=== PATIENT | female | born 1975 | race Caucasian/White ===

== ENCOUNTER → 2024-11-05 15:00 | Outpatient (BNVA) | payer OTHER, MEDICAID, SELFPAY | PROVIDERS: PCP Family Medicine; Visit Provider Registered Nurse | DX: E11.9 Type 2 diabetes mellitus without complications (principal) | CPT/HCPCS: 81000 ==

== ENCOUNTER → 2024-11-06 09:09 | Outpatient (BNVA) | payer OTHER, MEDICAID, SELFPAY | PROVIDERS: PCP Registered Nurse; Visit Provider Registered Nurse | DX: I10 Essential (primary) hypertension (principal) | CPT/HCPCS: 80053; 80061; 83036; 84443; 85025 ==

== ENCOUNTER → 2024-11-08 08:26 | Outpatient (BNVA) | payer OTHER, MEDICAID, SELFPAY | PROVIDERS: PCP Registered Nurse; Visit Provider Orthopaedic Surgery | DX: M75.42 Impingement syndrome of left shoulder (principal); M75.102 Unspecified rotator cuff tear or rupture of left shoulder, not specified as traumatic; M12.812 Other specific arthropathies, not elsewhere classified, left shoulder | CPT/HCPCS: 73030 ==

== ENCOUNTER → 2025-01-14 08:15 | Outpatient (BNVA) | payer BC, MEDICAID, SELFPAY | PROVIDERS: PCP Registered Nurse; Visit Provider Registered Nurse | DX: R50.9 Fever, unspecified (principal) | CPT/HCPCS: 87400; 87426 ==

== ENCOUNTER 2025-01-16 06:52 | Day surgery (SDC) | payer BC, MEDICAID, SELFPAY ==
[2025-01-16] VITALS (13 sets, daily range): BP systolic 127–157; BP diastolic 63–99; PULSE 82–98; RESP 12–28; TEMP 36.3–36.4; O2SAT 92–98; BMI 32.1
[2025-01-16] MEDS: sodium chloride 0.9% 1,000 ML 30 ML IV (07:25)
[2025-01-16 07:27] LABS: Glucose Point of Care 92 mg/dL (70-110)
[2025-01-16] MEDS: scopolamine 1 mg PATCH 1 PATCH TRANSDERMA (07:32)
--- NOTE | 2025-01-16 08:20 | W.PM.OPSUD ---
Surgery/Procedure H&P Update DATE OF PROCEDURE: January 16, 2025 DATE H&P PERFORMED: 11/08/24 H&P UPDATE INFORMATION: I have reviewed H&P completed within last 30 days, I have examined patient prior to procedure and No changes to prior documentation PREOP DIAGNOSIS: Torn rotator cuff left shoulder with acromial impingement PLANNED PROCEDURE: Operation Date: 01/16/25 08:30 Proposed Procedures p Shoulder Arthroscopy(Left) - Hamzah Cox MD s Rotator Cuff Repair(Left) - Hamzah Cox MD
--- NOTE | 2025-01-16 08:31 | ANES.PREANE2 ---
Pre-Anesthetic Assessment Height/Weight: Height 5 ft 2 in Weight 176 lb Temp Pulse Resp BP Pulse Ox O2 Del Method 97.4 F L 82 18 155/99 98 Room Air 01/16/25 07:14 01/16/25 07:14 01/16/25 07:14 01/16/25 07:32 01/16/25 07:14 01/16/25 07:20 Preop Diagnosis: Torn rotator cuff left shoulder with acromial impingement Operation Date: 01/16/25 08:30 Proposed Procedures p Shoulder Arthroscopy(Left) - Hamzah Cox MD s Rotator Cuff Repair(Left) - Hamzah Cox MD Was Beta Jorge taken within 24 hours: N/A Was Clonidine taken within 24 hours: N/A Last intake: Intake Last Liquid Date 01/15/25 Last Liquid Time 23:30 Last Solid Date 01/15/25 Last Solid Time 19:00 Social No alcohol and No tobacco Exam alert, oriented x 3, clear to auscultation bilaterally and regular rate & rhythm Airway Submandibular: within normal limits Cervical ROM: within normal limits Mallampati: Class III Dentition: full Anesthetic Plan ASA status: 3 Anesthesia: General and Regional (specify below) Other: Patient had a history of nausea after her total hysterectomy in the past. Other anesthetics without issues NPO since yesterday evening Patient has had a mild cold, denies any cough or fevers currently. Has been on Augmentin for 3 days now History of hypertension, controlled with losartan GERD, on Protonix Type 2 diabetes, Ozempic last taken 01/07/2025 Labs reviewed and acceptable for procedure Plan for general anesthesia with preop nerve block Medications/Allergies Home Medications ?Medication ?Instructions ?Recorded ?Confirmed ?Last Taken ?Type atorvastatin 10 mg tablet (Lipitor) 10 mg PO DAILY 90 days #90 tabs 11/05/24 01/15/25 01/15/25 Rx diphenhydramine HCl 25 mg capsule 25 mg PO ONCE PRN Itching 11/05/24 01/15/25 01/15/25 History (Benadryl) losartan 25 mg tablet 25 mg PO DAILY 90 days #90 tabs 11/05/24 01/15/25 01/15/25 Rx pantoprazole 40 mg tablet,delayed 40 mg PO DAILY 90 days #90 tabs 11/05/24 01/15/25 01/15/25 Rx release sitagliptin phosphate 100 mg 100 mg PO DAILY 90 days #90 tabs 11/05/24 01/15/25 01/15/25 Rx tablet (Januvia) tizanidine 4 mg capsule 4 mg PO Q8H PRN muscle spasticity 11/05/24 01/15/25 01/15/25 Rx 30 days #60 caps loratadine 10 mg capsule (Allergy 10 mg PO DAILY #90 caps 11/07/24 01/15/25 01/16/25 05:30 Rx Relief (loratadine)) paroxetine HCl 12.5 mg 12.5 mg PO DAILY #90 tabs 11/07/24 01/15/25 01/16/25 05:30 Rx tablet,extended release 24 hr (Paxil CR) tramadol 50 mg tablet 50 mg PO Q8H PRN pain 21 days #99 11/20/24 01/15/25 01/16/25 05:30 Rx tabs estradiol 0.01% (0.1 mg/gram) 1 appful vaginal DAILY 30 days 11/22/24 01/15/25 Unknown Rx vaginal cream #42.5 grams nystatin 100,000 unit/gram topical 1 applic topical BID #30 grams 11/22/24 01/15/25 Unknown Rx cream mupirocin 2 % topical ointment 1 applic topical BID 7 days #22 12/17/24 01/15/25 Unknown Rx (Centany) grams amoxicillin 875 mg-potassium 1 tab PO BID 7 days #14 tabs 01/14/25 01/15/25 01/16/25 05:30 Rx clavulanate 125 mg tablet blood-glucose sensor (FreeStyle #1 ea 01/14/25 Unknown Rx Kendy 3 Plus Sensor device) blood-glucose,civil preparedness training officer,cont #1 ea 01/14/25 Unknown Rx (FreeStyle Kendy 3 [place]) semaglutide 1 mg/dose (4 mg/3 mL) 0.5 mg SUBCUT .weekly 01/15/25 01/15/25 01/07/25 History subcutaneous pen injector (Ozempic) acyclovir 800 mg tablet 800 mg PO BID PRN Cold Sores 01/16/25 01/15/25 01/09/25 History celecoxib 200 mg capsule (Celebrex) 200 mg PO DAILY 01/16/25 01/15/2525 History duloxetine 60 mg capsule,delayed 60 mg PO DAILY 01/16/25 01/16/25 01/16/25 05:30 History release (Cymbalta) pregabalin 100 mg capsule (Lyrica) 100 mg PO TID 01/16/25 01/15/25 01/16/25 05:30 History Allergies Allergy/AdvReac Type Severity Reaction Status Date / Time hydrocodone (From Vicodin) Allergy vomiting Verified 01/14/25 07:47 latex Allergy ALGY-Rash Verified 01/15/25 11:10 Current Medications Generic Name Dose Route Start Last Admin Trade Name Freq PRN Reason Stop Dose Admin Sodium Chloride 1,000 mls @ 30 mls/hr 01/16/25 07:00 01/16/25 07:25 Sodium Chloride 0.9% IV 01/17/25 06:59 30 mls/hr .Q24H BERNY Administration PFSH Anesthesia Medical History Diabetes type 2 Fibromyalgia Arthritis History of hyperlipidemia GERD (gastroesophageal reflux disease) History of kidney stones Surgical History History of hysterectomy History of History of cholecystectomy History of tonsillectomy Family History Mother Diabetes mellitus, type 2 Lung disease Rheumatoid arthritis Hypertension Cancer, Onset Age: 44 cervical Grandmother Rheumatoid arthritis maternal Stroke paternal Father Hypertension Heart disease heart attack in his 40s Diabetes mellitus, type 2 Grandfather Lung disease Other Lung cancer Menstrual abnormality Social History Smoking and tobacco/nicotine status: never used tobacco/nicotine Alcohol intake: never Substance/Drug Use: never Adopted: No Caregiver/support person: No Lives independently: No Household members: spouse service: No Current occupational status: employed Sexually active: Yes Do you think of yourself as: Lesbian/[place]/Homosexual Current gender identity: Female
--- NOTE | 2025-01-16 08:31 | PC.NURSE ---
0815 - time out performed, site marked. using us guidance left shoulder injected with 30 ml of ropivicaine. pt oscar. well.
--- NOTE | 2025-01-16 08:33 | ANES.PROC ---
Anesthesia Procedures Procedure/Date: 01/16/25 Nerve Block ^: Nerve Block 1: Main Anesthesia: other (100 mcg fentanyl and 2 mg Versed) Time Out Performed: Yes Consent: requested by attending/covering physician and from patient Nerve block location: interscalene Anesthesia monitors applied: pulse oximetry, EKG, BP cuff and oxygen Nerve block position: supine Anesthetic Used: ropivicaine 0.5% Amount of anesthesia used (mL): 30 Ultrasound used to: recognize landmarks Nerve Stimulator Used?: Yes Interscalene/Femoral BLK: other needle (pjunk 4inch) Injection: neg aspiration of heme Patient Tolerated Procedure: well Complications: none Additional Comments: decadron 4mg
[2025-01-16] MEDS: ceFAZolin 2,000 mg SDV 2000 MG IVP (09:00)
--- NOTE | 2025-01-16 10:28 | P.OP_ITS ---
Operative Report Date of procedure: January 16, 2025 Surgeon: Hamzah Cox MD Procedure: Preoperative diagnosis: Left shoulder pain with known rotator cuff tear, acromial impingement, AC arthritis Postoperative diagnosis: Left shoulder rotator cuff tear, degenerative changes labrum, acromial impingement, AC arthrosis Procedure: Diagnostic left shoulder arthroscopy with debridement of the labrum and rotator cuff. Mini open acromioplasty with AC joint decompression and rotator cuff repair Surgeon: Hamzah Cox MD Mine Analyst: ZANE Kulkarni'andrés assistance was necessary for positioning of the patient, assistance d uring procedure, wound closure, dressing and immobilization placement, transfer the patient to the PACU Anesthesia: General With preoperative scalene block EBL: 20 cc Indications: Jessica is a 49-year-old white female presented to the orthopedic clinics with painful left shoulder. She has previously been worked up in an outside facility and had an MRI from April 2024 demonstrating a supra spinatus tear of her shoulder. Patient did not have any history of injury but gradually had increasing pain problems difficulty. Now with debilitating pain loss of motion and strength in the shoulder. Clinical exam was consistent with a rotator cuff tear. Also noted on the MRI besides the supraspinatus tear was the impingement of the acromion as well as DJD of the AC joint. Therefore at that time she was offered a diagnostic shoulder arthroscopy with possible mini open rotator cuff repair acromioplasty and AC joint decompression. All risk,, and treatment alternatives were discussed with her however she wished to proceed with surgical intervention at this time. Procedure After obtaining the consent patient had a scalene block administered in the preop holding area. Patient was then taken to the operating room and placed on the operative table in the supine position. General anesthetic administered. Once good anesthesia was achieved patient was positioned in a beachchair posit ion with appropriate padding and securing to the bed. Left upper extremity was prepped and draped usual fashion. After surgical timeout standard posterior portal was made with a #11 blade. Camera cannulas placed within the glenohumeral joint line and camera was introduced. Anterior working portal was made just inferior to the clavicle. Probing of the structures within the shoulder demonstrated some mild degenerative changes of the superior and anterior labrum. These were debrided with a mechanical shaver down to stable cartilaginous space. Also note was tear of the rotator cuff which also was debrided with mechanical shaver. At this point arthroscopy is discontinued. Knee longitudinal anterior lateral incision made by the tip of the acromion. Sharp dissection taken on down the subcutaneous tissue electrocautery used for hemostasis. Electrocautery was used to remove the deltoid from the anterior portion of the acromion. The large bulbous acromial hook was identified. Using a microsagittal saw acromioplasty was done all the way to the AC joint to remove bone. Portion of the anterior acromion and the AC joint was removed at this point. Decompressing the area. Hypertrophic bursa and scar tissue was debrided from the subacromial space. Supraspinatus tendon was found to be quite thickened around the biceps hiatus. And then more medially. There is also found a separate hole within the rotator cuff back within the infraspinatus musculotendinous junction. All these areas were freshened up with a #15 blade. Two 2.9 juggernaut bone anchors were placed both of these double armed. First 1 was placed back towards the infraspinatus defect. Sutures were used in a crossing pattern to bring the edges of this tear back together. Second anchor was placed on up in the supraspinatus footprint and then in a horizontal mattress suture fashion these were also sutured down. Portions of the suture from the anchor that was left over was then used in a [id number] pattern to close the tear further extending medially of the supraspinatus. Once this was completed evaluation the shoulder found that was decompressed and the rotator cuff was repaired. Areas washed with copious amounts of sterile irrigation. Deltoid was reapproximated together with 0 Vicryl [id number] sutures. Subcutaneous tissues reapproximated 0 Vicryl interrupted sutures and skin was closed with a running 3-0 Prolene horizontal mattress suture. Portals were also closed with 3-0 Prolene. Patient was placed in abduction pillow and sling after dressings have been placed. Patient was awakened transferred to cover room stable condition
[2025-01-16] MEDS: ondansetron 2 mg/ML SDV 2 mL 4 MG IVP (10:49)
[2025-01-16 10:52] LABS: Glucose Point of Care 109 mg/dL (70-110)
[2025-01-16] MEDS: oxyCODONE-APAP 5-325 mg Tablet 1 TAB PO (11:29)
--- NOTE | 2025-01-16 12:45 | ANE.PACU2 ---
Inpatient post-anesthesia follow up: Airway intact: Yes Vital signs: Temperature 97.3 F Pulse Rate 98 Respiratory Rate 18 Blood Pressure 127/81 Pulse Oximetry 94 Oxygen Delivery Me thod Room Air Oxygen Flow Rate 10 Fraction of Inspir ed Oxygen Hydration adequate: Yes Nausea and vomiting: No Pain level: 1 Mental status: Baseline
== END 2025-01-16 12:45 | disposition home or self-care (01) ==
PROVIDERS: PCP Registered Nurse; Visit Provider Orthopaedic Surgery
PROC: (CPT 29805; principal; 2025-01-16 08:30)
PROC: 0LQ24ZZ Repair Left Shoulder Tendon, Percutaneous Endoscopic Approach (ICD-10-PCS; CPT 29827; 2025-01-16 08:30)
DX: M75.122 Complete rotator cuff tear or rupture of left shoulder, not specified as traumatic (principal); M75.42 Impingement syndrome of left shoulder; M19.012 Primary osteoarthritis, left shoulder; I10 Essential (primary) hypertension; K21.9 Gastro-esophageal reflux disease without esophagitis; E11.9 Type 2 diabetes mellitus without complications; M79.7 Fibromyalgia; E78.5 Hyperlipidemia, unspecified
CPT/HCPCS: 23420; 36416; 82962; C1713; J0690; J1100; J2405; J2704; J3010; J3490; J7030; J9999

== ENCOUNTER → 2025-02-05 10:55 | Outpatient (BNVA) | payer BC, MEDICAID, SELFPAY | PROVIDERS: PCP Registered Nurse; Visit Provider Registered Nurse | DX: E11.9 Type 2 diabetes mellitus without complications (principal) | CPT/HCPCS: 80053; 80061; 83036; 83690 ==

== ENCOUNTER 2025-04-02 10:41 | Outpatient (CLI) | payer BC, MEDICAID, SELFPAY ==
--- NOTE | 2025-04-02 10:40 | MM_ITS ---
WS: [id number] BILATERAL 3D TOMOSYNTHESIS DIGITAL SCREENING MAMMOGRAPHY WITH CAD CLINICAL INFORMATION: SCREENING HISTORY: Screening mammogram. No current complaints. COMPARISON: 2020 TECHNIQUE: Bilateral CC and MLO views. FINDINGS: Scattered fibroglandular densities bilaterally. No suspicious focal mass, asymmetry, calcifications, or architectural distortion. No evidence of malignancy. A few incidental punctate calcifications. Stable intramammary lymph nodes. MM/MM scr tomosynthesis [id number] IMPRESSION: DENSITY: There are scattered areas of fibroglandular density. BI-RADS: 2 - Benign. FOLLOW UP: 1 Year Follow-up Recommend return to annual screening mammography.
== END 2025-04-02 10:42 | disposition home or self-care (01) ==
PROVIDERS: PCP Registered Nurse; Visit Provider Registered Nurse
DX: Z12.31 Encounter for screening mammogram for malignant neoplasm of breast (principal); R92.323 Mammographic fibroglandular density, bilateral breasts; R92.1 Mammographic calcification found on diagnostic imaging of breast
CPT/HCPCS: 77063; 77067

== ENCOUNTER 2025-06-12 11:59 | Outpatient (CLI) | payer OTHER, BC, MEDICAID, SELFPAY ==
--- NOTE | 2025-06-12 12:15 | MRR_ITS ---
PROCEDURE INFORMATION: Exam: MR Right Upper Extremity Joint Without Contrast; Shoulder Exam date and time: 06/12/2025 12:30 PM Age: 49 years old Clinical indication: Injury or trauma; Blunt trauma (contusions or hematomas); Injury date: 05/2024; Prior surgery; Surgery date: 1-6 months; Surgery type: Shoulder 01/2025; Fall May 2024 injuring both shoulder/left shoulder surgery in January 2025/limited rom in the right shoulder; Additional info: M24.811 - other specific joint derangements of right shou. . . TECHNIQUE: Imaging protocol: Magnetic resonance imaging of the right upper extremity without contrast. Exam focused on the shoulder. COMPARISON: No relevant prior studies available. FINDINGS: Bones/joints: Glenohumeral articular surfaces are intact. No evidence of fracture or aggressive osseous lesion. Trace joint effusion. Moderate AC joint osteoarthritis without evidence of fracture or subluxation. Glenoid labrum: Grossly intact. If further detail is clinically warranted, consider correlation with MR arthrography. Supraspinatus tendon: Full-thickness partial width tear of the distal anterior fibers, 8 mm AP. There is approximately 6 mm tendon retraction and associated peritendinitis/subacromial/subdeltoid bursitis. Infraspinatus tendon: Intact. Subscapularis tendon: Partial-thickness tear of the distal fibers contributing to the transverse humeral ligament. No evidence of full-thickness tear. Teres minor tendon: Intact. Tendon of biceps brachii: Intact. There is suspected sprain/partial tear of the biceps rachel including the transverse humeral and coracohumeral ligaments. Glenohumeral ligaments: Grossly intact. Soft tissues: No fluid collection or hematoma. MR/MR shoulder RT wo con* [id number] IMPRESSION: 1. Full-thickness partial width tear of the supraspinatus tendon anterior fibers. 2. Partial-thickness tear of the subscapularis tendon distal fibers with suspected involvement of the biceps rachel.
== END 2025-06-12 12:00 | disposition home or self-care (01) ==
LOC: RAD 12:01
PROVIDERS: PCP Registered Nurse; Visit Provider Registered Nurse
DX: M24.811 Other specific joint derangements of right shoulder, not elsewhere classified (principal); M75.101 Unspecified rotator cuff tear or rupture of right shoulder, not specified as traumatic; S46.811A Strain of other muscles, fascia and tendons at shoulder and upper arm level, right arm, initial encounter; X58.XXXA Exposure to other specified factors, initial encounter; M19.011 Primary osteoarthritis, right shoulder; R93.7 Abnormal findings on diagnostic imaging of other parts of musculoskeletal system; M75.51 Bursitis of right shoulder
CPT/HCPCS: 73221

== ENCOUNTER 2025-06-19 08:45 | Day surgery (SDC) | payer OTHER, BC, MEDICAID, SELFPAY ==
[2025-06-19] VITALS (10 sets, daily range): BP systolic 125–156; BP diastolic 76–117; PULSE 90–100; RESP 16–18; TEMP 36.2–37; O2SAT 94–100; BMI 32.7
--- NOTE | 2025-06-19 09:29 | ANES.PREANE2 ---
Pre-Anesthetic Assessment Height/Weight: Height 5 ft 2 in Operation Date: 06/19/25 11:05 Proposed Procedures p RIGHT Shoulder Arthroscopy(Right) - Hamzah Cox MD s Rotator Cuff Repair - Open(Right) - Hamzah Cox MD Anesthetic Plan ASA status: 3 Anesthesia: General and Regional (specify below) Other: No prior issues with anesthesia NPO since yesterday evening History of hypertension on HCTZ and losartan Type 2 diabetes on glipizide and sitagliptin p.o. Cervical spinal stenosis noted GERD on Protonix BMP ordered Plan for GETA with preop nerve block Medications/Allergies Home Medications ?Medication ?Instructions ?Recorded ?Confirmed ?Last Taken ?Type diphenhydramine HCl 25 mg capsule 25 mg PO ONCE PRN Itching 11/05/24 06/19/25 06/18/25 History (Benadryl) nystatin 100,000 unit/gram topical 1 applic topical BID #30 grams 11/22/24 06/18/25 Unknown Rx cream acyclovir 800 mg tablet 800 mg PO BID PRN Cold Sores 01/16/25 06/18/25 01/09/25 History blood sugar diagnostic (OneTouch #100 ea 01/16/25 06/19/25 Unknown Rx Verio test strips) blood-glucose meter #1 ea 01/16/25 06/19/25 Unknown Rx lancets 30 gauge (Onetouch Delica #100 ea 01/16/25 06/19/25 Unknown Rx Safety Lancet) loratadine 10 mg capsule (Allergy 10 mg PO DAILY #90 caps 02/04/25 06/19/25 06/19/25 Rx Relief (loratadine)) tramadol 50 mg tablet 50 mg PO Q8H PRN pain 30 days #120 02/28/25 06/19/25 06/19/25 Rx tabs tizanidine 4 mg capsule 4 mg PO Q8H PRN muscle spasticity 03/11/25 06/19/25 06/18/25 Rx 30 days #60 caps glipizide 5 mg tablet 5 mg PO BID 90 days #180 tabs 03/21/25 06/18/25 06/18/25 Rx sitagliptin phosphate 100 mg 100 mg PO DAILY 90 days #90 tabs 03/21/25 06/18/25 06/18/25 Rx tablet (Januvia) estradiol 0.5 mg tablet 0.5 mg PO DAILY 30 days #30 tabs 04/25/25 06/19/25 06/19/25 Rx atorvastatin 10 mg tablet (Lipitor) 10 mg PO DAILY 90 days #90 tabs 05/08/25 06/18/25 06/18/25 Rx pantoprazole 40 mg tablet,delayed 40 mg PO DAILY 90 days #90 tabs 05/08/25 06/18/25 06/18/25 Rx release pregabalin 100 mg capsule (Lyrica) 100 mg PO TID 30 days #90 caps 05/09/25 06/19/25 06/19/25 Rx fluticasone propionate 50 See Rx Instructions .Route 06/06/25 06/18/25 Unknown Rx mcg/actuation nasal .COMPLEX #16 grams spray,suspension hydrochlorothiazide 25 mg tablet 25 mg PO DAILY 30 days #30 tabs 06/06/25 06/19/25 06/19/25 Rx losartan 50 mg tablet 50 mg PO DAILY 90 days #90 tabs 06/06/25 06/18/25 06/18/25 Rx diclofenac sodium 1 % topical gel See Rx Instructions .Route 06/13/25 06/17/25 Unknown Rx .COMPLEX #100 grams celecoxib 200 mg capsule (Celebrex) 1 06/18/25 Unknown History duloxetine 60 mg capsule,delayed 60 mg PO DAILY 06/18/25 06/19/25 06/19/25 History release paroxetine HCl 12.5 mg 12.5 mg PO DAILY 06/18/25 06/19/25 06/19/25 History tablet,extended release 24 hr Allergies Allergy/AdvReac Type Severity Reaction Status Date / Time hydrocodone (From Vicodin) Allergy vomiting Verified 06/18/25 14:14 latex Allergy ALGY-Rash Verified 06/18/25 14:14 [facility] Anesthesia Medical History (Updated 06/14/25 @ 12:33 by Hamzah Cox MD) Type 2 diabetes mellitus without complication, without long-term current use of insulin Fibromyalgia Arthritis History of hyperlipidemia GERD (gastroesophageal reflux disease) History of kidney stones Surgical History History of hysterectomy History of History of cholecystectomy History of tonsillectomy Family History Mother Diabetes mellitus, type 2 Lung disease Rheumatoid arthritis Hypertension Cancer, Onset Age: 44 cervical Grandmother Rheumatoid arthritis maternal Stroke paternal Father Hypertension Heart disease heart attack in his 40s Diabetes mellitus, type 2 Grandfather Lung disease Other Lung cancer Menstrual abnormality Social History Smoking and tobacco/nicotine status: never used tobacco/nicotine Alcohol intake: never Substance/Drug Use: never Adopted: No Caregiver/support person: No Lives independently: No Household members: spouse service: No Current occupational status: employed Sexually active: Yes Do you think of yourself as: Lesbian/[place]/Homosexual Current gender identity: Female
--- NOTE | 2025-06-19 10:25 | W.PM.OPSUD ---
Surgery/Procedure H&P Update DATE OF PROCEDURE: June 19, 2025 DATE H&P PERFORMED: 06/10/25 H&P UPDATE INFORMATION: I have reviewed H&P completed within last 30 days, I have examined patient prior to procedure and No changes to prior documentation PLANNED PROCEDURE: Operation Date: 06/19/25 11:05 Proposed Procedures p RIGHT Shoulder Arthroscopy(Right) - Hamzah Cox MD s Rotator Cuff Repair - Open(Right) - Hamzah Cox MD
[2025-06-19] MEDS: insulin regular-human 100 units/1 mL 5 UNIT IVP (10:46)
[2025-06-19 10:52] LABS: Blood Urea Nitrogen 20 mg/dL (6-20); Calcium 9.2 mg/dL (8.5-10.5); Carbon Dioxide 26 mmol/L (22-29); Chloride 98 mmol/L (98-107); Creatinine Clr Calc Pharmacy 93.8678; Glucose 254 mg/dL (65-115); Osmolality Calculated 295 mOsm/kg (285-295); Sodium 137 mmol/L (136-145)
[2025-06-19 10:53] LABS: Anion Gap 17.1 (5-19); Potassium 4.1 mmol/L (3.5-5.1)
--- NOTE | 2025-06-19 10:56 | ANES.PROC ---
Anesthesia Procedures Procedure/Date: 06/19/25 Nerve Block ^: Nerve Block 1: Main Anesthesia: other (100mcg fentanyl and 2mg versed) Time Out Performed: Yes Consent: requested by attending/covering physician and from patient Laterality: Right Nerve block location: interscalene Anesthesia monitors applied: pulse oximetry, EKG, BP cuff and oxygen Nerve block position: supine Anesthetic Used: ropivicaine 0.5% Amount of anesthesia used (mL): 30 Ultrasound used to: recognize landmarks Nerve Stimulator Used?: Yes Interscalene/Femoral BLK: other needle (pjunk 4inch) Injection: neg aspiration of heme Patient Tolerated Procedure: well Complications: none
--- NOTE | 2025-06-19 10:58 | PC.NURSE ---
1045- pt given [address] Lind, Anestheisa
[2025-06-19] MEDS: ceFAZolin 2,000 mg SDV 2000 MG IVP (10:59)
--- NOTE | 2025-06-19 10:59 | PC.NURSE ---
1020- Time out completed with Dr. Perkins and financial underwriter, Right side interscalene nerve block completed with ultrasound guidance and twitch monitor. Pt tolerated well. Pre medications given via IVP by Dr. Perkins.
--- NOTE | 2025-06-19 12:15 | P.OP_ITS ---
Operative Report Date of procedure: June 19, 2025 Surgeon: Hamzah Cox MD Procedure: Preoperative diagnosis: Internal derangement right shoulder torn rotator cuff Postoperative diagnosis: Anterior and superior degenerative tearing of the labrum, torn rotator cuff, acromial impingement, gross bursitis. Procedure: Diagnostic right shoulder arthroscopy with debridement of labrum and rotator cuff tears. Mini open rotator cuff repair with acromioplasty and bursectomy Surgeon: Hamzah Cox MD [employer] Worker: ZANE Kulkarni'andrés assistance was necessary for positioning the patient, assistance during the procedure, wound closure, placement of abduction pillow sling Anesthesia: General Preoperative scalene block EBL: 50 cc Indications: Jessica is a 49-year-old white female who was previously had a left shoulder rotator cuff repair by myself and has done very well with this. However recently she fell on some stairs and fell backwards landing on her right shoulder. Subsequently had pain and inability to raise her arm. Primary care had ordered the MRI demonstrating a large tear of the rotator cuff and therefore was referred back to orthopedic clinics. After evaluation and review of the MRI is felt the patient would benefit from surgical repair of this. All risk benefits treatment alternatives were discussed again even though she is familiar with this having done this with the left shoulder in the past. Patient was agreeable to proceed with surgical intervention Procedure: After obtaining consent patient had preoperative scalene block administered in preop holding area. Patient was then taken to the operating room placed operative table supine position general anesthetic administered. Once good anesthesia was achieved patient placed up in the beachchair position. Her head was secured as well as her body well-padded. Right shoulder and arm were prepped and draped usual fashion. After surgical timeout standard posterior portals made #11 blade. Camera cannula was introduced to the posterior glenohumeral joint line. Anterior working portal was also made just inferior to the clavicle. The anterior labrum demonstrated a partial tear with from the glenoid but not complete tear. There is degenerative change of the superior aspect of the labrum also. These areas were debrided down to stable cartilaginous base mechanical shaver. Evaluation of the rotator cuff found a large tear within the supraspinatus tendon was frayed and from the humerus. This is debrided with mechanical shaver. Arthroscopy was discontinued and mini open was proceeded with. Longitudinal incision made off to the anterior lateral corner of the acromion of the right shoulder. Sharp dissection taken down to subcutaneous tissue electrocautery is for hemostasis. Electrocautery is used for dissection on the way down and remove the deltoid from the anterior portion of the acromion. Large acromial hook was identified and then a microsagittal saw was used to do an acromioplasty at this time. Bone was removed en bloc. After good decompression hypertrophic bursa was sharply debrided from the subacromial space. Tear of the rotator cuff was very evident and is frayed and open it was extending posterior to the biceps hiatus approximately 1-1/2 to 2 cm. Edges of tear were freshened with a #15 blade. 2 juggernaut's that were 2.9 mm double armed suture anchors were placed equal distance along the course of the tear of the rotator cuff. Horizontal mattress sutures then used to repair this back down to the humeral head. Shoulders put through range of motion found to be stable with no other damage to the rotator cuff at this time. Areas washed copious nonsterile irrigation. Deltoid reapproximated 0 Vicryl [id number] sutures. Subcutaneous tissue reapproximated 0 Vicryl erupted sutures the skin was closed with running 3-0 Prolene sutures. Wounds are clean and dry dressed with Xeroform gauze sterile gauze dressing ABDs adhesive tape. Patient placed in abduction pillow and sling awakened and transferred cover him in stable condition
--- NOTE | 2025-06-19 13:37 | ANE.PACU2 ---
Inpatient post-anesthesia follow up: Airway intact: Yes Vital signs: Temperature 97.8 F Pulse Rate 95 Respiratory Rate 16 Blood Pressure 150/89 Pulse Oximetry 96 Oxygen Delivery Me thod Room Air Oxygen Flow Rate 8 Fraction of Inspir ed Oxygen Hydration adequate: Yes Nausea and vomiting: No Pain level: 1 Mental status: Baseline
== END 2025-06-19 13:40 | disposition home or self-care (01) ==
PROVIDERS: Student in an Organized Health Care Education/Training Program; PCP Registered Nurse; Visit Provider Orthopaedic Surgery
PROC: (CPT 29805; principal; 2025-06-19 11:05)
PROC: (CPT 23412; 2025-06-19 11:05)
DX: M24.811 Other specific joint derangements of right shoulder, not elsewhere classified (principal); M75.101 Unspecified rotator cuff tear or rupture of right shoulder, not specified as traumatic; S43.431A Superior glenoid labrum lesion of right shoulder, initial encounter; W19.XXXA Unspecified fall, initial encounter; M75.51 Bursitis of right shoulder; K21.9 Gastro-esophageal reflux disease without esophagitis; I10 Essential (primary) hypertension; E11.9 Type 2 diabetes mellitus without complications; M79.7 Fibromyalgia
CPT/HCPCS: 23412; 23130; 64415; 36416; 80048; 82962; C1713; J0690; J1100; J1815; J2250; J2405; J2704; J2710; J3010; J3490; J7030; J9999